=== PATIENT | male | born 1955 | race Caucasian/White ===

== ENCOUNTER 2024-02-19 13:36 | Inpatient (IN) | payer MEDICARE, OTHER ==
[2024-02-19 14:04] VITALS: BMI 30.4
[2024-02-19] MEDS ORDERED: Calcium Carbonate 500 MG ChewTAB PO PRN (14:54)
[2024-02-19] MEDS ORDERED: Dextrose 5% in Water 1,000 ML IV PRN (14:54)
[2024-02-19] MEDS ORDERED: Acetaminophen 650 MG Suppository PR PRN (14:54)
[2024-02-19] MEDS ORDERED: Glucagon 1 MG/ML KIT IM PRN (14:54)
[2024-02-19] MEDS ORDERED: Dextrose 50% Abboject 50 ML SYRINGE SLOW IVP PRN (14:54)
[2024-02-19] MEDS ORDERED: Ondansetron ODT 4 MG TAB PO PRN (14:54)
[2024-02-19] MEDS ORDERED: Insulin Lispro 100 UNIT/ML 10 ML VIAL SC PRN (14:54)
[2024-02-19] MEDS ORDERED: Nitroglycerin 0.4 MG TAB (25 Tab Bottle) SL PRN (14:54)
[2024-02-19] MEDS ORDERED: Acetaminophen 325 MG TAB PO PRN (14:54)
[2024-02-19] MEDS ORDERED: Senokot S 8.6-50 MG TAB PO PRN (14:54)
[2024-02-19] MEDS ORDERED: Ondansetron PF 4 MG/2 ML Vial IVP PRN (14:54)
[2024-02-19] MEDS ORDERED: Morphine 2 MG/ML VIAL SLOW IVP PRN (14:58)
[2024-02-19 15:40] LABS: #Basophils 0.04 10x3/uL (0.0-0.2); #Eosinophils 0.21 10x3/uL (0.0-0.5); #Neutrophils 4.25 10x3/uL (1.5-8.4); %Basophils 0.5 % (0.0-2.0); %Eosinophils 2.8 % (0.0-6.0); %Lymphocytes 31.3 % (18.0-47.0); %Monocytes 8.1 % (0.0-10.0); %Neutrophils 57.2 % (40.0-75.0); Hematocrit 43.9 % (38.8-50.0); Hemoglobin 14.5 g/dL (13.5-17.5); Mean Corpuscular Hemoglobin 30.3 pg (27.0-33.0); Mean Corpuscular Volume 91.8 fL (81.2-95.1); Mean Platelet Volume 11.5 fL (7.4-10.4); Platelet Count 163 10x3/uL (150-450); RBC Distribution Width 13.2 % (11.5-14.5); Red Blood Cell (RBC) Count 4.78 10x6/uL (4.32-5.72); White Blood Cell (WBC) Count 7.4 10x3/uL (3.5-10.5)
[2024-02-19 15:55] LABS: ALT (SGPT) 20 U/L (8-55); AST (SGOT) 19 U/L (5-34); Albumin 4.1 g/dL (3.4-4.8); Alkaline Phosphatase 63 U/L (40-110); Anion Gap 13 mmol/L (10-20); BUN (Urea Nitrogen) 17 mg/dL (8.4-25.7); Bilirubin, Total 0.4 mg/dL (0.2-1.2); Calc. Creatinine Clearance 56 mL/min (70-130); Calcium 9.7 mg/dL (7.8-10.44); Carbon Dioxide 24 mmol/L (23-31); Chloride 107 mmol/L (98-107); Estimated GFR 47; Globulin 3.1 g/dL (2.4-3.5); Glucose 200 mg/dL (80-115); Potassium 4.3 mmol/L (3.5-5.1); Protein, Total 7.2 g/dL (5.8-8.1); Sodium 140 mmol/L (136-145)
[2024-02-19 16:00] LABS: Troponin I Less than 0.010 ng/mL (< 0.028)
[2024-02-19] MEDS: Enoxaparin 40 MG (0.4 mL) SYRINGE SC SCH (16:07)
[2024-02-19] MEDS: Gabapentin 300 MG CAP PO SCH (16:29)
[2024-02-19] MEDS: Insulin Lispro 100 UNIT/ML 10 ML VIAL SC PRN (16:29)
[2024-02-19] MEDS: Lactated Ringer's 1,000 ML IV SCH (16:31)
[2024-02-19 18:22] LABS: Troponin I Less than 0.010 ng/mL (< 0.028)
[2024-02-19] MEDS: Bupropion 150 MG SR.TAB PO SCH (20:19)
[2024-02-19] MEDS: Atorvastatin Calcium 40 MG TAB PO SCH (20:19)
[2024-02-19] MEDS ORDERED: Carvedilol 3.125 MG TAB PO SCH (21:00)
[2024-02-20 04:45] LABS: #Basophils 0.05 10x3/uL (0.0-0.2); #Eosinophils 0.21 10x3/uL (0.0-0.5); #Monocytes 0.72 10x3/uL (0.0-1.1); %Basophils 0.7 % (0.0-2.0); %Lymphocytes 39.7 % (18.0-47.0); %Monocytes 10.3 % (0.0-10.0); Mean Corpuscular Volume 91.6 fL (81.2-95.1); RBC Distribution Width 13.2 % (11.5-14.5)
[2024-02-20 05:02] LABS: Anion Gap 13 mmol/L (10-20); BUN (Urea Nitrogen) 21 mg/dL (8.4-25.7); Calc. Creatinine Clearance 54 mL/min (70-130); Calcium 9.1 mg/dL (7.8-10.44); Carbon Dioxide 25 mmol/L (23-31); Chloride 107 mmol/L (98-107); Estimated GFR 45; Glucose 115 mg/dL (80-115); Potassium 3.9 mmol/L (3.5-5.1); Sodium 141 mmol/L (136-145)
[2024-02-20] MEDS: Sodium Chloride 0.9% 1,000 ML IV SCH (05:03)
[2024-02-20 05:21] LABS: Hematocrit 40.1 % (38.8-50.0); Hemoglobin 13.6 g/dL (13.5-17.5); Mean Corpuscular HGB CONC 33.9 g/dL (32.0-36.0); Mean Corpuscular Hemoglobin 31.1 pg (27.0-33.0); Mean Platelet Volume 11.3 fL (7.4-10.4); Platelet Count 134 10x3/uL (150-450); Red Blood Cell (RBC) Count 4.38 10x6/uL (4.32-5.72); White Blood Cell (WBC) Count 7.04 10x3/uL (3.5-10.5)
[2024-02-20] MEDS: Lisinopril 20 MG TAB PO SCH (05:21)
[2024-02-20] MEDS: Aspirin Chewable 81 MG TAB PO SCH (05:21)
[2024-02-20] MEDS ORDERED: Nitroglycerin 50 MG/250 ML BOT 0 ML ONE (06:35)
[2024-02-20] MEDS ORDERED: Adenosine 6 mg (2 mL) VIAL ONE (06:35)
[2024-02-20] MEDS ORDERED: Heparin 10,000 UNITS/ 10 ML VIAL ONE (06:35)
[2024-02-20] MEDS ORDERED: fentaNYL 50 mcg/mL 1 mL Vial ONE (06:36)
[2024-02-20] MEDS ORDERED: Midazolam HCl 2 mg/2 ml Vial ONE (06:36)
[2024-02-20] MEDS: Carvedilol 6.25 MG TAB PO SCH (07:15)
[2024-02-20] MEDS ORDERED: Lidocaine 1% (PF) 30 ML VIAL ONE (08:03)
[2024-02-20] MEDS ORDERED: PHENYLEPHRINE-NS 100 MCG/ML 10 ML SYRINGE ONE (08:04)
[2024-02-20] MEDS ORDERED: Atropine Sulfate 1 mg/1 ml Vial ONE (08:04)
[2024-02-20] MEDS ORDERED: Enoxaparin 40 MG (0.4 mL) SYRINGE SC SCH (09:00)
[2024-02-20] MEDS ORDERED: Acetaminophen/Codeine 30-300mg Tablet PO PRN ×2 (09:27)
[2024-02-20] MEDS ORDERED: Nitroglycerin 0.4 MG TAB (25 Tab Bottle) SL PRN (09:27)
[2024-02-20] MEDS ORDERED: Sodium Chloride 0.9% 200 ML IV PRN (09:27)
[2024-02-20 11:49] VITALS: TEMP 97.5
[2024-02-20] MEDS ORDERED: Iopamidol 300 61% 100 ML VIAL FS ONE (13:29)
[2024-02-20 14:37] VITALS: BP 140/76
== END 2024-02-20 14:20 | disposition home or self-care (01) | DRG 287 ==
LOC: CSHTELE 13:36
PROVIDERS: ADMIT Hospitalist; ATTEND Hospitalist
PROC: 3E033XZ Introduction of Vasopressor into Peripheral Vein, Percutaneous Approach (ICD-10-PCS; principal; 2024-02-20)
PROC: 4A023N7 Measurement of Cardiac Sampling and Pressure, Left Heart, Percutaneous Approach (ICD-10-PCS; 2024-02-20)
PROC: B2111ZZ Fluoroscopy of Multiple Coronary Arteries using Low Osmolar Contrast (ICD-10-PCS; 2024-02-20)
PROC: B2151ZZ Fluoroscopy of Left Heart using Low Osmolar Contrast (ICD-10-PCS; 2024-02-20)
DX: I25.118 Atherosclerotic heart disease of native coronary artery with other forms of angina pectoris (principal); I24.9 Acute ischemic heart disease, unspecified; E78.5 Hyperlipidemia, unspecified; E11.42 Type 2 diabetes mellitus with diabetic polyneuropathy; I10 Essential (primary) hypertension; F17.210 Nicotine dependence, cigarettes, uncomplicated; I25.2 Old myocardial infarction; Z95.5 Presence of coronary angioplasty implant and graft
CPT/HCPCS: 36415; 36416; 71046; 80048; 80053; 83735; 84484; 85025; 93005; 93010; 93458; 94760; 99152; 99153; C1760; C1769; J0153; J0461; J1644; J1650; J1815; J2250; J3010; J7030; J7120; Q9967